=== PATIENT | female | born 1995 | race Caucasian/White ===

== ENCOUNTER 2023-02-07 12:53 | Emergency (ER) | payer MEDICAID ==
[~2023-02-07] VITALS: Ht 162.6 cm; Wt 54.4 kg
[2023-02-07 12:58] VITALS: BP 109/55; PULSE 67; RESP 18; TEMP 99.1; O2SAT 100
[2023-02-07] MEDS ORDERED: CETI10TA11 MT (13:56)
[2023-02-07] MEDS ORDERED: PRED10TA23 MT (13:56)
== END 2023-02-07 18:33 | disposition home or self-care (01) ==
LOC: ER 12:53
DX: L30.9 Dermatitis, unspecified (principal)
CPT/HCPCS: 99283